=== PATIENT | male | born 1990 | race Caucasian/White ===

== ENCOUNTER 2018-06-21 02:36 | Emergency (ER) | payer MEDICAID ==
[~2018-06-21] VITALS: Ht 180.3 cm; Wt 86.2 kg
--- NOTE | 2018-06-21 02:40 | NUR ---
PATIENT BROUGHT IN BY SELF, WITH C/O FEELING DEPRESSED, WITH PLAN TO COMMIT SUICIDE BY OVERDOSING ON SEROQUEL PILLS. DENIES HI. VSS
--- NOTE | 2018-06-21 02:44 | NUR ---
PER EVAN AT [facility] INTAKE PATIENT CAN HAVE A BED AT [facility] ONCE THEY ARE MEDICALLY CLEARED. SHE WILL NEED FACE SHEET FAXED TO [phone]. DIRECT LINE TO [facility] INTAKE [phone].
[2018-06-21 03:03] LABS: BASOPHILS # (AUTO) 0.1 /CMM (0.0-0.2); BASOPHILS % (AUTO) 0.5 % (0.0-2.0); EOSINOPHILS % (AUTO) 0.8 % (0.0-6.0); HEMATOCRIT 44 % (39-51); HEMOGLOBIN 14.7 g/dL (13.5-17.5); LYMPHOCYTES # (AUTO) 2.8 /CMM (0.8-4.8); LYMPHOCYTES % (AUTO) 26.7 % (20.0-44.0); MEAN CORPUSCULAR HGB CONC 33 g/dl (31.0-36.0); MEAN CORPUSCULAR VOLUME 94 fL (80-96); MONOCYTES # (AUTO) 0.8 /CMM (0.1-1.30); MONOCYTES % (AUTO) 7.9 % (2.0-12.0); NEUTROPHILS # (AUTO) 6.6 /CMM (1.8-8.9); NEUTROPHILS % (AUTO) 64.1 % (43.0-81.0); PLATELET COUNT (AUTO) 354 /CMM (150-450); RDW COEFFICIENT OF VARIATION 13.3 (11.5-15.0); RED BLOOD CELL COUNT(AUTO) 4.73 MIL/uL (4.5-6.0); WHITE BLOOD COUNT (AUTO) 10.4 K/uL (4.3-11.0)
[2018-06-21 03:21] LABS: CALCIUM, SERUM 8.9 mg/dL (8.5-10.1); CARBON DIOXIDE 24 mmol/L (21-32); CHLORIDE 100 mmol/L (98-107); GLUCOSE 126 mg/dL (74-106); POTASSIUM 3.7 mmol/L (3.5-5.1); SODIUM SERUM 135 mmol/L (136-145); UREA NITROGEN, BLOOD 8 mg/dL (7-18)
[2018-06-21 03:30] LABS: ALANINE AMINOTRANSFERASE 23 U/L (12-78); ALBUMIN 4.3 g/dL (3.4-5.0); ALCOHOL, BLOOD 5 mg/dL (0-0); ALKALINE PHOSPHATASE 75 U/L (46-116); ASPARTATE AMINOTRANSFERASE 18 U/L (15-37); BILIRUBIN,DIRECT 0.1 mg/dL (0.0-0.2); BILIRUBIN,TOTAL 0.5 mg/dL (0.2-1.0); SALICYLATE 2.9 mg/dL (2.8-20.0); TOTAL PROTEIN, SERUM 7.8 g/dL (6.4-8.2)
[2018-06-21 03:49] LABS: ACETAMINOPHEN < 2 ug/ml (10-30)
--- NOTE | 2018-06-21 05:00 | NUR ---
REPORT GIVEN TO STAFF AT [facility] [phone]
--- NOTE | 2018-06-21 05:11 | NUR ---
PATIENT DISCHARGED, MEDICALLY STABLE, AMBULATORY. PATIENT LEFT HOSPITAL [facility]IA [facility] TO [facility].
[2018-06-21 05:18] VITALS: BP 119/78
== END 2018-06-21 05:20 | disposition home or self-care (01) ==
LOC: ER 02:36
DX: R45.851 Suicidal ideations (principal); F15.10 Other stimulant abuse, uncomplicated; F31.9 Bipolar disorder, unspecified; F43.10 Post-traumatic stress disorder, unspecified
CPT/HCPCS: 36415; 71045; 80048; 80076; 80305; 80329; 84484; 85025; 93005; 99285; A4606; G0480 ×2; Z7610